=== PATIENT | female | born 1980 | race Two or more races ===

== ENCOUNTER 2021-06-27 11:43 | Emergency (ER) | payer OTHER ==
[~2021-06-27] VITALS: Ht 167.6 cm; Wt 79.4 kg
[2021-06-27] MEDS ORDERED: ADVAIR HFA 115/12 GM IH (12:04)
[2021-06-27] MEDS ORDERED: PROAIR HFA8.5 GM IH (12:04)
[2021-06-27] MEDS ORDERED: ZITHROMAX TRI-500 MG PO (16:29)
== END 2021-06-27 16:42 | disposition home or self-care (01) ==
LOC: ER 11:43
DX: R53.81 Other malaise (principal); R06.02 Shortness of breath; Z03.818 Encounter for observation for suspected exposure to other biological agents ruled out